=== PATIENT | female | born 1980 | race Caucasian/White ===

== ENCOUNTER → 2016-08-31 | Outpatient (CLI) | payer BC ==
--- NOTE | 2016-08-31 20:04 | Diagnostic Imaging Report ---
INDICATION: Pelvic pain. COMPARISON: October 25, 2014. TECHNIQUE: Transabdominal and transvaginal pelvic ultrasound was performed on August 31, 2016. FINDINGS: The uterus measures 8.5 x 5.1 x 4.3 cm. A 0.8 x 0.7 cm heterogeneous though predominantly hypoechoic lesion is identified within the anterior aspect of the uterine body. No internal vascular flow. Otherwise, the uterus is unremarkable. The endometrium measures 0.6 cm, which is within normal limits. Previously noted intrauterine device is no longer visualized. The right ovary was unable to be visualized. No abnormal right adnexal mass lesion. The left ovary measures 3.9 x 3.7 x 2.9 cm. A 2.6 x 1.8 x 2.0 cm cystic lesion is identified within the left ovary. Several images demonstrate internal echoes within this cystic lesion. The left ovary is otherwise unremarkable. Vascular flow is seen within the left ovary. Small amount of free fluid within the lower pelvis. IMPRESSION: 1. A 2.6 cm left ovarian cyst. This demonstrates internal echoes. These internal echoes are favored to be artifactual, though a solid nodular component is not totally excluded based upon the submitted images. Therefore, a followup ultrasound in six weeks is recommended. 2. A 0.8 cm hypoechoic avascular structure within the anterior aspect of the uterus, likely related to a small fibroid. 3. Small amount of free fluid within the lower pelvis. 4. The right ovary is not visualized, though no abnormal right adnexal lesion was seen. Dictated by: Dictated on workstation # [id number]
== END ==
LOC: RAD 16:46
PROVIDERS: ATTEND Nurse Practitioner Family
DX: N83.202 Unspecified ovarian cyst, left side (principal); N85.9 Noninflammatory disorder of uterus, unspecified
CPT/HCPCS: 76830; 76856

== ENCOUNTER → 2016-10-05 | Outpatient (CLI) | payer BC ==
--- NOTE | 2016-10-05 13:04 | Diagnostic Imaging Report ---
EXAMINATION: Transabdominal and transvaginal pelvic ultrasound. INDICATION: Pelvic pain. FINDINGS: The uterus is 8.2 x 5.3 x 4.6 cm. The endometrial stripe is 0.5 cm in thickness. The myometrium is slightly heterogenous. There is a 0.8 x 0.4 x 0.8 cm hypoechoic lesion in the anterior aspect of the body of the uterus with internal flow, suggestive of a fibroid. The right ovary is 2.7 x 2.5 x 3.8 cm. The left ovary is 3.5 x 2.7 x 2.8 cm. Arterial and venous waveforms over both ovaries are seen. There is a prominent follicle measuring 2.3 x 2.1 x 2 cm seen in the left ovary, similar to 08/31/2016 with no internal vascularity seen. In the right ovary, there is a cystic lesion measuring 2.7 x 2.5 x 2.6 cm with a thickened wall and suggestion of internal clot, probably related to a hemorrhagic corpus luteum cyst. No significant free fluid or fluid collection in the pelvis is seen. The urinary bladder appears unremarkable. IMPRESSION: Findings are suggestive of a hemorrhagic corpus luteum cyst in the right ovary. A followup study in 6 weeks is recommended to ensure resolution. Dictated by: Dictated on workstation # [id number]
== END ==
LOC: RAD 10:02
PROVIDERS: ATTEND Nurse Practitioner Family
DX: N83.202 Unspecified ovarian cyst, left side (principal)
CPT/HCPCS: 76830; 76856